=== PATIENT | female | born 2000 | race Hispanic/Latino ===

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

== ENCOUNTER 2020-06-04 17:24 | Emergency (ER) | payer OTHER ==
[~2020-06-04] VITALS: Ht 548.6 cm; Wt 56.8 kg
[~2020-06-04 17:24] MED LIST changes: +LANTUS100 UNIT/M SC
[2020-06-04 19:55] VITALS: BP 127/76
== END 2020-06-04 19:55 | disposition home or self-care (01) | DRG 563 ==
LOC: ED 17:24
DX: S29.012A Strain of muscle and tendon of back wall of thorax, initial encounter (principal); S50.812A Abrasion of left forearm, initial encounter; E11.9 Type 2 diabetes mellitus without complications; V49.40XA Driver injured in collision with unspecified motor vehicles in traffic accident, initial encounter; W22.11XA Striking against or struck by driver side automobile airbag, initial encounter; Z79.4 Long term (current) use of insulin

== ENCOUNTER 2024-02-05 05:26 | Emergency (ER) | payer SELFPAY ==
[~2024-02-05] VITALS: Ht 154.9 cm; Wt 59.0 kg
[2024-02-05] VITALS (7 sets, daily range): BP systolic 100–119; BP diastolic 64–75
[2024-02-05] MEDS ORDERED: SODIUM CHLORIDE 0.9% 1,000 ML IV ONE ×2 (05:55→08:05)
[2024-02-05] MEDS ORDERED: ONDANSETRON HCl 4 MG/2 ML SDV IV ONE (05:55)
[2024-02-05 06:00] LABS: BASO% 0.1 % (0-3); EOS% 0.1 % (0-8); HEMATOCRIT 39.9 % (37.0-47.0); HEMOGLOBIN 12.8 g/dl (12.0-16.0); IMMATURE GRANULOCYTES 0.2 % (0.0-5.0); MEAN CELL VOLUME 93.7 fL CALC (80.0-100.0); MEAN CORPUSCULAR HGB CONC 32.1 g/dL CAL (32.0-36.0); MONO% 4.1 % (2-13); NEUT# 8.29 thou/uL (2.00-7.15); NEUT% 77.5 % (42-76); RED BLOOD COUNT 4.26 mill/uL (4.20-5.60); RED CELL DISTRI WIDTH 11.7 % (11.5-15.5)
[2024-02-05 06:10] LABS: ALBUMIN 4.4 g/dL (3.2-5.0); BILIRUBIN, TOTAL 0.6 mg/dL (0.02-1.3); CREATININE 0.4 mg/dL (0.5-1.0); POTASSIUM 3.9 mmol/l (3.5-5.1); TOTAL PROTEIN 7.8 g/dL (6.3-8.2)
[2024-02-05 06:43] LABS: URINE BILIRUBIN - DIPSTICK Negative (NEGATIVE); URINE BLOOD DIPSTICK Negative (NEGATIVE); URINE CLARITY Clear; URINE GLUCOSE - DIPSTICK Negative (NEGATIVE); URINE KETONE 40 mg/dL (NEGATIVE); URINE LEUK ESTERASE Trace (Negative); URINE NITRITE - DIPSTICK Negative (Negative); URINE PROTEIN - DIPSTICK Negative (NEG-TRACE); URINE UROBILINOGEN - DIPSTICK 0.2 E.U./dL (0.2)
[2024-02-05 06:44] LABS: URINE COLOR Yellow
[2024-02-05] MEDS ORDERED: DICYCLOMINE HCL 20 MG/2 ML VIAL IM ONE (06:50)
[2024-02-05] MEDS ORDERED: REGLAN10 MG PO (08:28)
== END 2024-02-05 08:46 | disposition home or self-care (01) | DRG 832 ==
LOC: ED 05:26
PROVIDERS: Emergency Medicine
DX: O21.9 Vomiting of pregnancy, unspecified (principal); O99.619 Diseases of the digestive system complicating pregnancy, unspecified trimester; R19.7 Diarrhea, unspecified; O24.319 Unspecified pre-existing diabetes mellitus in pregnancy, unspecified trimester; E11.9 Type 2 diabetes mellitus without complications; Z79.4 Long term (current) use of insulin; Z3A.00 Weeks of gestation of pregnancy not specified